=== PATIENT | female | born 1945 | race African-American/Black ===

== ENCOUNTER 2021-06-09 09:38 | Inpatient (IN) | payer MEDICARE ==
[2021-06-09] VITALS (12 sets, daily range): BP systolic 122–162; BP diastolic 50–111
[~2021-06-09] VITALS: Ht 152.4 cm; Wt 63.5 kg
[~2021-06-09 09:38] MED LIST: ENOXAPARIN 80MG/0.8ML SYR SUBCUT SCH
[2021-06-09] MEDS ORDERED: SODIUM CHLORIDE 0.9% 500 ML IV ONE (11:45)
[2021-06-09] MEDS ORDERED: CEFTRIAXONE 1 G PREMIX 50 ML IV ONE (11:45)
[2021-06-09] MEDS ORDERED: AZITHROMYCIN 500MG/250ML 250 ML IV ONE (11:45)
[2021-06-09 12:22] LABS: CHLORIDE 107 mEq/L (98-107)
[2021-06-09 12:31] LABS: HEMATOCRIT. 42.7 % (36.0-48.0); HEMOGLOBIN. 13.2 g/dL (12.0-16.0); MEAN CORPUSCULAR HEMOGLOBIN 28.3 pg (28.0-32.0); MEAN CORPUSCULAR VOLUME 91.3 fL (81.0-99.0); MEAN PLATELET VOLUME 10.7 fl (7.4-10.4); PLATELET 320 x1000/uL (130-400); RED BLOOD CELL COUNT 4.68 mill/uL (4.2-5.4); RED CELL DISTRIBUTION WIDTH 15.2 % (11.6-14.6)
[2021-06-09] MEDS ORDERED: ASPIRIN 325MG TABLET PO ONE (12:45)
[2021-06-09 12:46] LABS: BG BASE EXCESS -5.2 mmol/L (-2.0-2.0); BG CARBOXYHEMOGLOBIN 0.2 % (0.5-1.5); BG DEOXYHEMOGLOBIN 0.8 % (0.0-5.0); BG FRACTION INSPIRED OXYGEN 100; BG HCO3 ACT 20.6 mmol/L (22.0-26.0); BG METHEMOGLOBIN 0.1 % (0.0-1.5); BG OXYGEN SATURATION 99.2 % (92.0-98.5); BG OXYHEMOGLOBIN 98.9 % (94.0-97.0); BG PCO2 41.2 mmHg (35.0-45.0); BG PH 7.317 (7.350-7.450); BG PO2 172.9 mmHg (75.0-100.0); BG SAMPLE SITE RIGHT BRACHIAL; BG TOTAL HEMOGLOBIN 14.3 g/dL (12.0-18.0); BG VENT MODE MASK - NRB
[2021-06-09 13:05] LABS: PLATELET ESTIMATE NORMAL
[2021-06-09] MEDS ORDERED: ENOXAPARIN 80MG/0.8ML SYR SUBCUT SCH (13:15)
[2021-06-09] MEDS ORDERED: LIDOCAINE HCL 1% 20ML VIAL (Pyxis) INJ ONE (13:21)
[2021-06-09] MEDS ORDERED: POTASSIUM CHLORIDE INJ 40 MEQ in DEXT 5% WATER 250 ML IV ONE (14:00)
[2021-06-09] MEDS ORDERED: SODIUM CHLORIDE 0.45% 500 ML IV ONE (14:00)
[2021-06-09] MEDS ORDERED: INSULIN REGULAR (HUMULIN R) 300UNITS/3ML VIAL SUBCUT SCH (14:30)
[2021-06-09] MEDS: KCL 20MEQ/100ML PREMIX 100 ML IV SCH ×2 (14:36→16:25)
[2021-06-09] MEDS ORDERED: DEXAMETHASONE 4MG/ML 1ML VIAL IV ONE (15:00)
[2021-06-09] MEDS: BLOOD SUGAR DIAGNOSTIC STRIP TEST SCH (17:00)
[2021-06-09] MEDS ORDERED: ONDANSETRON HCL 4MG/2ML INJ IV PRN (17:00)
[2021-06-09] MEDS ORDERED: ERGOCALCIFEROL 50000UNITS CAPSULE PO SCH (17:00)
[2021-06-09] MEDS ORDERED: CLONIDINE 0.1MG TABLET PO PRN (17:00)
[2021-06-09] MEDS ORDERED: ACETAMINOPHEN 325MG TABLET PO PRN ×2 (17:00)
[2021-06-09] MEDS ORDERED: GUAIFENESIN 200MG/10ML SUGAR FREE UDC PO PRN (17:00)
[2021-06-09] MEDS ORDERED: MAGNESIUM/ALUMINUM HYDROXIDE/SIMETHICONE 30ML UDC PO PRN (17:00)
[2021-06-09] MEDS ORDERED: DEXTROSE 50% WATER 50ML SYRINGE IV PRN (17:00)
[2021-06-09] MEDS ORDERED: LEVOFLOXACIN 500MG PREMIX 100 ML IV SCH (17:30)
[2021-06-09] MEDS ORDERED: PROMETHAZINE/DEXTROMETHORPHAN 6.25-15MG/5ML BOTTLE 120ML PO PRN (17:30)
[2021-06-09] MEDS: INSULIN LISPRO 100 UNITS/ML SUBCUT SCH (18:41)
[2021-06-09] MEDS: GUAIFENESIN 600MG ER TABLET PO SCH (20:43)
[2021-06-09] MEDS ORDERED: ZOLPIDEM TARTRATE 5MG TABLET PO PRN (21:00)
[2021-06-09] MEDS ORDERED: IOHEXOL-350 100 ML BOTTLE ONE (21:39)
[2021-06-09] MEDS ORDERED: INSULIN GLARGINE UD 100 UNITS/ML SYR SUBCUT SCH ×2 (22:00)
[2021-06-09] MEDS: SODIUM CHLORIDE 0.9% INJ 3ML FLUSH IVF SCH (22:14)
[2021-06-10] VITALS (51 sets, daily range): BP systolic 111–176; BP diastolic 50–114
[2021-06-10] MEDS: BLOOD SUGAR DIAGNOSTIC STRIP TEST SCH ×5 (05:39→20:57)
[2021-06-10] MEDS: SODIUM CHLORIDE 0.9% INJ 3ML FLUSH IVF SCH ×3 (05:39→21:27)
[2021-06-10] MEDS: ENOXAPARIN 80MG/0.8ML SYR SUBCUT SCH ×2 (05:53→17:00)
[2021-06-10 05:54] LABS: HEMOGLOBIN. 13.4 g/dL (12.0-16.0); LYMPHOCYTES % 7.3 % (20.0-50.0); MEAN CORPUSCULAR HEMOGLOBIN 29.2 pg (28.0-32.0); MEAN CORPUSCULAR VOLUME 89.4 fL (81.0-99.0); MEAN PLATELET VOLUME 10.5 fl (7.4-10.4); MONOCYTES % 6.2 % (2.0-8.0); NEUTROPHILS % 86.5 % (40.0-76.0); PLATELET 209 x1000/uL (130-400); RED BLOOD CELL COUNT 4.58 mill/uL (4.2-5.4); RED CELL DISTRIBUTION WIDTH 14.7 % (11.6-14.6)
[2021-06-10 05:57] LABS: CHLORIDE 113 mEq/L (98-107)
[2021-06-10] MEDS: INSULIN LISPRO 100 UNITS/ML SUBCUT SCH ×4 (06:01→20:56)
[2021-06-10] MEDS: ASPIRIN 81MG TABLET PO SCH (09:00)
[2021-06-10] MEDS: GUAIFENESIN 600MG ER TABLET PO SCH ×2 (09:00→20:56)
[2021-06-10] MEDS: DEXAMETHASONE 10 MG/ML VIAL IV SCH (09:00)
[2021-06-10] MEDS ORDERED: CEFTRIAXONE 1,000 MG in DEXTROSE 5% WATER 50 ML IV SCH (15:00)
[2021-06-10] MEDS: AZITHROMYCIN 250 MG TABLET PO SCH (15:21)
[2021-06-10] MEDS ORDERED: ALBUTEROL 6.7GM HFA INHALER ORI PRN (18:00)
[2021-06-11] VITALS: BP 122/50
[2021-06-11 04:00] VITALS: BP 129/72
[2021-06-11] MEDS: ENOXAPARIN 80MG/0.8ML SYR SUBCUT SCH (05:56)
[2021-06-11] MEDS: SODIUM CHLORIDE 0.9% INJ 3ML FLUSH IVF SCH ×3 (05:56→21:06)
[2021-06-11] MEDS: BLOOD SUGAR DIAGNOSTIC STRIP TEST SCH ×4 (07:40→21:07)
[2021-06-11 08:00] VITALS: BP 137/69
[2021-06-11] MEDS: AZITHROMYCIN 250 MG TABLET PO SCH (08:48)
[2021-06-11] MEDS: GUAIFENESIN 600MG ER TABLET PO SCH ×2 (08:49→21:04)
[2021-06-11] MEDS: DEXAMETHASONE 10 MG/ML VIAL IV SCH (08:49)
[2021-06-11] MEDS: ASPIRIN 81MG TABLET PO SCH (08:49)
[2021-06-11] MEDS: INSULIN LISPRO 100 UNITS/ML SUBCUT SCH ×4 (08:52→21:00)
[2021-06-11] MEDS ORDERED: NEBIVOLOL HCL 5 MG TABLET PO SCH (09:00)
[2021-06-11] MEDS ORDERED: CEFTRIAXONE 1,000 MG in DEXTROSE 5% WATER 50 ML IV SCH (11:00)
[2021-06-11 12:00] VITALS: BP 136/70
[2021-06-11 12:52] LABS: HEMATOCRIT. 30.1 % (36.0-48.0); HEMOGLOBIN. 9.6 g/dL (12.0-16.0); MEAN CORPUSCULAR HEMOGLOBIN 28.6 pg (28.0-32.0); MEAN CORPUSCULAR VOLUME 89.5 fL (81.0-99.0); MEAN PLATELET VOLUME 11.8 fl (7.4-10.4); PLATELET 209 x1000/uL (130-400); RED BLOOD CELL COUNT 3.37 mill/uL (4.2-5.4); RED CELL DISTRIBUTION WIDTH 14.9 % (11.6-14.6)
[2021-06-11 13:44] LABS: NUCLEATED RED BLOOD CELLS 1 /100 WBC; PLATELET ESTIMATE NORMAL
[2021-06-11 16:00] VITALS: BP 110/56
[2021-06-11] MEDS ORDERED: METF500T60 PO (19:48)
[2021-06-11] MEDS ORDERED: AMLO10TA80 MT (19:48)
[2021-06-11] MEDS ORDERED: ATOR40TA70 MT (19:49)
[2021-06-11] MEDS ORDERED: DONE10TA36 MT (19:49)
[2021-06-11 20:00] VITALS: BP 98/48
[2021-06-11] MEDS ORDERED: DOPAMINE 800MG PREMIX (DOUBLE) 250 ML IV PRN (23:00)
[2021-06-12] MEDS ORDERED: SODIUM BICARBONATE 8.4% 1 MEQ/ML 50ML SYR IV ONE (08:48)
[2021-06-12] MEDS ORDERED: ATROPINE SULFATE 1MG/10ML SYR ONE (08:48)
[2021-06-12] MEDS ORDERED: DEXTROSE 50% WATER 50ML SYRINGE IV ONE (08:48)
[2021-06-12] MEDS ORDERED: AMIODARONE HCL 50MG/ML 3ML VIAL IV ONE (08:48)
[2021-06-12] MEDS ORDERED: EPINEPHRINE 0.1MG/ML (1:10,000) 10ML SYR ONE (08:48)
[2021-06-12] MEDS ORDERED: ENOXAPARIN 60MG/0.6ML SYR SUBCUT SCH (09:00)
== END 2021-06-12 02:20 | DRG 871 ==
LOC: ER 09:57 → MICUSO 15:53 → EDBEDREQ 16:00 → EDBEDREQSVC 16:00 → ENRESERV 20:16 → 7WST 06-10 17:00
PROVIDERS: ADMIT Internal Medicine; ATTEND Internal Medicine
PROC: 02HV33Z Insertion of Infusion Device into Superior Vena Cava, Percutaneous Approach (ICD-10-PCS; principal; 2021-06-09)
PROC: B548ZZA Ultrasonography of Superior Vena Cava, Guidance (ICD-10-PCS; 2021-06-09)
DX: A41.89 Other specified sepsis (principal); I21.4 Non-ST elevation (NSTEMI) myocardial infarction; J12.82 Pneumonia due to coronavirus disease 2019; J96.01 Acute respiratory failure with hypoxia; U07.1 COVID-19; N17.9 Acute kidney failure, unspecified; J44.0 Chronic obstructive pulmonary disease with (acute) lower respiratory infection; I16.0 Hypertensive urgency; I11.9 Hypertensive heart disease without heart failure; E11.65 Type 2 diabetes mellitus with hyperglycemia; D64.9 Anemia, unspecified; E11.649 Type 2 diabetes mellitus with hypoglycemia without coma; E78.5 Hyperlipidemia, unspecified; I46.9 Cardiac arrest, cause unspecified; I49.01 Ventricular fibrillation; R65.20 Severe sepsis without septic shock; Z82.49 Family history of ischemic heart disease and other diseases of the circulatory system; Z87.891 Personal history of nicotine dependence; Z86.73 Personal history of transient ischemic attack (TIA), and cerebral infarction without residual deficits
CPT/HCPCS: 36415; 36600; 71045; 71275; 76937; 80048; 80053; 80061; 82375; 82805; 82962; 83036; 83605; 83735; 83880; 84145; 84484; 85025; 85379; 86140; 87426; 87635; 87804; 92950; 93005; 93970; 94002; 99285; C1725; J0282; J0456; J0461; J0696; J1100; J1650; J1815; J1956; J3480; J3490; J7040; J7060; Q9967